=== PATIENT | male | born 1930 | race Caucasian/White ===

== ENCOUNTER 2016-12-23 11:08 | Emergency (ER) | payer MEDICARE, OTHER ==
[~2016-12-23] VITALS: Ht 172.7 cm; Wt 72.7 kg
[2016-12-23 11:11] VITALS: BP 142/68; PULSE 81; RESP 17; O2SAT 96
--- NOTE | 2016-12-23 11:21 | ED.REPORT ---
HPI-General Illness Date of Service Dec 23, 2016 ED Provider: Christofer Dawson DO The patient is an 86 year old male with history of coronary artery disease, hyperlipidemia, and GERD, who was brought to the emergency department from [facility] for hematuria that started yesterday. He denies dysuria, penile pain, testicular pain, abdominal pain, vomiting, fever or chills. He has not had similar symptoms in the past. He is not on any blood thinners. Nursing Notes Stated Complaint: BLOOD IN URINE Chief Complaint: General Complaint Nursing Notes Reviewed: Yes Allergies: Coded Allergies: Penicillins (Verified Allergy, Mild, water blisters all over, 07/07/09) Salicylates (Verified Allergy, Unknown, 07/07/09) omeprazole (Verified Adverse Reaction, Mild, SOME DIARRHEA?, 07/07/09) aspirin (Verified Adverse Reaction, Unknown, SENSITIVE, 07/07/09) General Time Seen by MD: 11:20 Chief Complaint Other (hematuria) Hx Obtained From: Patient Arrived By: Walk-in Sudden in Onset?: Yes Onset Occurred: Yesterday Symptom Duration: Since onset Severity: Current: No pain currently Severity: Maximum: No pain Recent Healthcare: No recent hospitalization Similar Sx Previous: No Past Medical History Past Medical History Coronary artery disease GERD Hyperlipidemia Choledocholithiasis Past Surgical History Colostomy Appendectomy Cholecystectomy Bilateral carpal tunnel surgery Family History Noncontributory Smoking History Unknown if Ever Smoker Social History Lives at [facility] Other Social History: Good social support, , Local resident Ambulatory Status Independent Review of Systems -penile pain Full Review of Systems Constitutional: Denies: Chills, Fever GI: Denies: Abdominal pain, Vomiting Male: Reports Hematuria, Denies Dysuria, Denies Testicular pain Complete sys rev & neg: except as marked. Physical Exam Vital Signs Vital Signs Date Time Temp Pulse Resp B/P Pulse Ox O2 Delivery O2 Flow Rate FiO2 12/23/16 14:39 75 16 143/89 97 Room Air 12/23/16 13:51 75 16 143/89 97 Room Air 12/23/16 11:11 36.7 81 17 142/68 96 Room Air Initial VS: Reviewed Head / Eyes: Atraumatic, Normocephalic, PERRL ENT: Mucous membranes moist, Conjunctiva normal, No scleral icterus Neck: Supple, Non-tender, Full range of motion Respiratory: Breath sounds normal, Clear to auscultation, No respiratory distress Cardiovascular: Regular rate & rhythm, Heart sounds normal, Intact distal pulses Abdomen / GI: Soft, Non-tender, No guarding, No rebound, No distention Back: No CVA tenderness Extremities: Vascular intact, Neuro intact, No swelling, No tenderness Skin: Warm, Dry, No cyanosis Neurologic: Alert, Oriented, Nonfocal Psychiatric: Mood/affect normal, Behavior normal, Normal thought content General/Constitutional: Awake, Alert, Cooperative Interpretation & Diagnostics Interpretation & Diagnostics: Urine dip: positive for bilirubin, negative for blood Lab Results Interpretation Result Diagram: 12/23/16 1227 12/23/16 1227 Test 12/23/16 12:27 12/23/16 12:40 White Blood Count 5.1th/mm3 (3.8-10.1) Red Blood Count 5.60mil/mm3 (4.40-5.80) Hemoglobin 14.8g/dL (13.8-17.2) Hematocrit 44.2% (41.0-50.0) Mean Corpuscular Volume 78.9fL (81-100) Mean Corpuscular Hemoglobin 26.4pg (27.0-35.0) Mean Corpuscular Hemoglobin Concent 33.5% (32.0-37.0) Red Cell Distribution Width 15.2% (12.3-15.4) Platelet Count 136bil/L (150-400) Neutrophils (%) (Auto) 61.2% (40-74) Lymphocytes (%) (Auto) 24.6% (14-46) Monocytes (%) (Auto) 12.8% (4-12) Eosinophils (%) (Auto) 0.4% (0-5) Basophils (%) (Auto) 0.4% (0-3) Sodium Level 135mEq/L (134-144) Potassium Level 4.7mEq/L (3.5-5.2) Chloride Level 100mEq/L (97-108) Carbon Dioxide Level 20mmol/L (18-29) Blood Urea Nitrogen 21mg/dL (8-27) Creatinine 0.73mg/dL (0.76-1.27) Estimat Glomerular Filtration Rate 108mL/min (>59) Glucose Level 105mg/dL (60-99) Calcium Level 9.4mg/dL (8.5-10.1) Total Bilirubin 0.7mg/dL (0.0-1.2) Aspartate Amino Transf (AST/SGOT) 17U/L (0-50) Alanine Aminotransferase (ALT/SGPT) 6U/L (0-44) Alkaline Phosphatase 62U/L (25-160) Total Protein 7.1g/dL (6.4-8.4) Albumin 4.5g/dL (3.4-5.0) Hold Murray Top Tube Received (Received) Urine Color Dark yellow (YELLOW) Urine Appearance Clear (CLEAR,HAZY) Urine pH 6.0 (5.0-8.0) Urine Specific Parsons 1.025 (1.003-1.035) Urine Protein Negativemg/dL (NEG,TRACE) Urine Glucose (UA) Negativemg/dL (NEGATIVE) Urine Ketones Tracemg/dL (NEGATIVE) Urine Occult Blood Negative (NEGATIVE) Urine Nitrite Negative (NEGATIVE) Urine Bilirubin Negative (NEGATIVE) Urine Urobilinogen Normalmg/dL (NORMAL) Urine Leukocyte Esterase Negative (NEGATIVE) Urine RBC 0-2/hpf (0-2) Urine WBC 0-5/hpf (0-5) Urine Epithelial Cells Occasional/hpf (NONE-MOD) Urine Crystals None seen (NONE SEEN) Urine Bacteria None/hpf (NONE-FEW) Urine Hyaline Casts None/lpf (NONE) Urine Granular Casts None seen (NONE SEEN) Urine Waxy Casts None seen (NONE SEEN) Urine Red Blood Cell Casts None seen (NONE SEEN) Urine White Blood Cell Casts None seen (NONE SEEN) Urine Mucus Present (None Seen) Urine Trichomonas None seen (NONE SEEN) Urine Yeast None (NONE SEEN) Urinalysis Comment None Urine Culture Reflexed Not indicated Re-Eval/Medical Decision Med Decision/Clinical Course Concern for hematuria however urinalysis and laboratory studies are unremarkable. Patient's other is he symptomatic and will be discharged. Source of Hx: Old records Time of Eval: 13:59 Re-Evaluation/Progress Note: Rechecked the patient. Discussed results, diagnosis, and plan for discharge. All questions were addressed. Counseled Regarding: Diagnosis, Lab results, Need for follow-up, When/why to return to ED Discharge & Departure Primary Impression: Urine discoloration Disposition: Home Discharge Condition All VS Reviewed: Yes Condition: Stable Additional Instructions: Thank you for entrusting us with your care today. Your workup today looks good. Followup with your primary care provider next week. We have printed a copy of your labs for you. Please return to the emergency department for any new or concerning symptoms. Referrals: Trey Gannon MD Attestation Portions of this note were transcribed by Hanane Landeros. I, Dr. Dawson personally performed the history, physical exam and medical decision-making; I reviewed and confirmed the accuracy of the information in the transcribed note. Signed by: Yakov Diallo, 12/23/2016 at 1415. copies to: Trey Gannon MD, Timothy S DO Dec 23, 2016 11:21 Hanane Landeros Dec 23, 2016 11:26
[2016-12-23 12:50] LABS: BASOPHILS % (AUTO) 0.4 % (0-3); EOSINOPHILS % (AUTO) 0.4 % (0-5); MONOCYTES % (AUTO) 12.8 % (4-12); Mean Corpuscular Hemoglobin 26.4 pg (27.0-35.0); Mean Corpuscular Volume 78.9 fL (81-100); NEUTROPHILS % (AUTO) 61.2 % (40-74); Platelet Count 136 bil/L (150-400)
[2016-12-23 13:40] LABS: APPEARANCE,URINE CLEAR (CLEAR,HAZY); COLOR,URINE DARK YELLOW (YELLOW)
[2016-12-23 13:41] LABS: OCCULT BLOOD,URINE NEGATIVE (NEGATIVE); UROBILINOGEN,URINE NORMAL (NORMAL)
[2016-12-23 13:51] VITALS: BP 143/89; PULSE 75; RESP 16; O2SAT 97
[2016-12-23 14:39] VITALS: BP 143/89; PULSE 75; RESP 16; O2SAT 97
== END 2016-12-23 14:27 | disposition home or self-care (01) ==
LOC: SED 11:08
DX: R82.99 Other abnormal findings in urine (principal); I25.10 Atherosclerotic heart disease of native coronary artery without angina pectoris; E78.5 Hyperlipidemia, unspecified; K21.9 Gastro-esophageal reflux disease without esophagitis; Z87.19 Personal history of other diseases of the digestive system; Z90.49 Acquired absence of other specified parts of digestive tract; Z88.0 Allergy status to penicillin; Z88.6 Allergy status to analgesic agent; Z88.8 Allergy status to other drugs, medicaments and biological substances